=== PATIENT | female | born 1970 | race African-American/Black ===

== ENCOUNTER 2022-01-11 14:54 | Emergency (ER) | payer OTHER ==
[2022-01-11] MEDS ORDERED: PREDNISONE 20MG20 MG PO (18:25)
== END 2022-01-11 18:30 | disposition home or self-care (01) ==
LOC: FER 14:54
DX: S86.911A Strain of unspecified muscle(s) and tendon(s) at lower leg level, right leg, initial encounter (principal); I10 Essential (primary) hypertension
CPT/HCPCS: 73502; 73564; J1885; J7512